=== PATIENT | male | born 1995 | race Two or more races ===

== ENCOUNTER 2021-03-16 12:00 | Emergency (ER) | payer MEDICAID, OTHER ==
[~2021-03-16] VITALS: Ht 165.1 cm; Wt 100.0 kg
[2021-03-16 12:05] VITALS: BP 130/88
[2021-03-16] MEDS ORDERED: NAPR-681 PO (13:04)
[2021-03-16] MEDS ORDERED: CIPR5DRO EACHEYE (13:04)
== END 2021-03-16 13:34 | disposition home or self-care (01) ==
LOC: ER 12:00
DX: H10.33 Unspecified acute conjunctivitis, bilateral (principal)
CPT/HCPCS: 99283